=== PATIENT | male | born 1985 | race African-American/Black ===

== ENCOUNTER 2022-01-31 22:04 | Emergency (ER) | payer OTHER ==
[~2022-01-31] VITALS: Ht 175.3 cm; Wt 99.5 kg
[2022-01-31 23:08] LABS: APPEARANCE, URINE CLEAR (CLEAR); BACTERIA, URINE AUTO NEGATIVE (NEGATIVE); BILIRUBIN, URINE AUTO NEGATIVE (NEGATIVE); BLOOD, URINE BLOOD NEGATIVE (NEGATIVE); COLOR, URINE STRAW (YELLOW); GLUCOSE, URINE (UA) AUTO NEGATIVE (NEGATIVE); KETONE, URINE AUTO NEGATIVE (NEGATIVE); LEUKOCYTE ESTERASE, URINE AUTO NEGATIVE (NEGATIVE); NITRITE, URINE AUTO NEGATIVE (NEGATIVE); PROTEIN, URINE AUTO NEGATIVE (NEGATIVE); RBC, URINE AUTO 0 /HPF (0-3); SPECIFIC GRAVITY URINE AUTO 1.009 (1.002-1.035); SQUAMOUS EPITHELIAL CELL UR AU 0 /HPF (0-6); UROBILINOGEN, URINE AUTO 0.2 mg/dL (0.0-2.0); WBC, URINE AUTO 2 /HPF (0-3)
[2022-02-01 00:33] LABS: GC DNA AMPLIFICATION NEGATIVE (NEGATIVE)
[2022-02-01] MEDS ORDERED: LIDOCAINE 1% SDV 5ML VIAL DILUENT ONE (00:45)
[2022-02-01] MEDS ORDERED: cefTRIAXone 500MG VIAL (J0696 PER 250MG) IM ONE (00:45)
[2022-02-01] MEDS ORDERED: DOXY-443 PO (00:48)
[2022-02-01 01:22] VITALS: BP 148/87
== END 2022-02-01 01:25 | disposition home or self-care (01) ==
LOC: M ED 22:04
DX: N34.2 Other urethritis (principal); Z86.16 Personal history of COVID-19; Z88.0 Allergy status to penicillin
CPT/HCPCS: 81001; 87661; 87810; 87850; 96372; 99283; J0696